=== PATIENT | female | born 1955 | race Caucasian/White ===

== ENCOUNTER 2024-10-01 12:28 | Outpatient (CLI) | payer MEDICARE, SELFPAY | END 2024-10-01 12:29 | disposition home or self-care (01) | LOC: NFLDREF 10-03 22:53 | PROVIDERS: PCP Physician Assistant Medical; Referring Provider Physician Assistant Medical; Visit Provider Nurse Practitioner Family | DX: R30.0 Dysuria (principal); N30.00 Acute cystitis without hematuria; D72.829 Elevated white blood cell count, unspecified; T83.511A Infection and inflammatory reaction due to indwelling urethral catheter, initial encounter | CPT/HCPCS: 87086 ==